=== PATIENT | male | born 1985 | race Caucasian/White ===

== ENCOUNTER 2017-05-26 11:59 | Emergency (ER) | payer OTHER ==
[~2017-05-26] VITALS: Ht 182.9 cm; Wt 110.0 kg
[~2017-05-26 11:59] MED LIST: OMEP-110 PO
[2017-05-26] MEDS ORDERED: HYDROmorphone 2 MG/ML, 1ML IM ONE (13:30)
[2017-05-26] MEDS ORDERED: KETOROLAC 30 MG/1 ML IM ONE (13:30)
[2017-05-26] MEDS ORDERED: DIAZEPAM 5 MG TABLET PO ONE (14:00)
[2017-05-26] MEDS ORDERED: DIAZEPAM 5 MG TABLET ONE (14:01)
[2017-05-26] MEDS ORDERED: KETOROLAC 30 MG/1 ML ONE (14:01)
[2017-05-26] MEDS ORDERED: HYDROmorphone 2 MG/ML, 1ML ONE (14:01)
[2017-05-26 15:38] VITALS: BP 153/97
== END 2017-05-26 15:41 | disposition home or self-care (01) ==
LOC: ED 14:14
DX: R09.1 Pleurisy (principal); I10 Essential (primary) hypertension
CPT/HCPCS: 71046; 93005; 96372; 99284; J1170; J1885

== ENCOUNTER 2017-06-17 23:01 | Emergency (ER) | payer OTHER ==
[~2017-06-17] VITALS: Ht 182.9 cm; Wt 125.0 kg
[2017-06-17] MEDS ORDERED: SODIUM CHLORIDE FLUSH 10ML SYR IVF ONE (23:30)
[2017-06-17] MEDS ORDERED: SODIUM CHLORIDE 0.9% 1,000ML IVBOLUS ONE (23:30)
[2017-06-17 23:49] LABS: BASOPHILS # (AUTO) 0.04 x10^3/uL (0-0.1); BASOPHILS % (AUTO) 0 % (0-1); EOSINOPHILS # (AUTO) 0.29 x10^3/uL (0-0.4); EOSINOPHILS % (AUTO) 3 % (1-7); LYMPHOCYTES # (AUTO) 2.71 x10^3/uL (1-3.4); LYMPHOCYTES % (AUTO) 27 % (22-44); MD NO; MEAN CORPUSCULAR HEMOGLOBIN 32.7 pg (27.5-34.5); MEAN CORPUSCULAR HGB CONC 34.1 g/dL (33.2-36.2); MEAN CORPUSCULAR VOLUME 95.8 fL (81-97); MEAN PLATELET VOLUME 9.4 fL (7.4-10.4); MONOCYTES % (AUTO) 9 % (2-9); NEUTROPHILS # (AUTO) 6.15 x10^3/uL (1.8-6.8); NEUTROPHILS % (AUTO) 61 % (42-75); PLATELET COUNT 216 x10^3/uL (130-400); RED BLOOD COUNT 5.31 x10^6/uL (4.38-5.82); RED CELL DISTRIBUTION WIDTH 13.3 % (9.4-14.8)
[2017-06-18 00:01] LABS: ALBUMIN 3.9 g/dL (3.4-5.0); ANION GAP 10 mmol/L (5-15); CALCIUM 9.2 mg/dL (8.5-10.1); CHLORIDE 107 mmol/L (98-107); CREATININE 0.77 mg/dL (0.7-1.3)
[2017-06-18 00:29] VITALS: BP 136/80
== END 2017-06-18 00:32 | disposition home or self-care (01) ==
LOC: ED 23:15
DX: S06.0X0A Concussion without loss of consciousness, initial encounter (principal); S20.211A Contusion of right front wall of thorax, initial encounter; K21.9 Gastro-esophageal reflux disease without esophagitis; I10 Essential (primary) hypertension; V49.49XA Driver injured in collision with other motor vehicles in traffic accident, initial encounter; Y93.89 Activity, other specified; Y92.488 Other paved roadways as the place of occurrence of the external cause; Y99.8 Other external cause status
CPT/HCPCS: 36415; 70450; 71045; 72125; 80048; 82040; 85025; 99285